=== PATIENT | female | born 1950 | race Asian ===

== ENCOUNTER → 2020-08-10 | Day surgery (SDC) | payer MEDICARE ==
[~2020-08-10] MED LIST: COREG3.125 MG PO; FUROSEMIDE40 MG PO; OR PHACO EYE KIT ONE; PREOP PHACO EYE KIT ONE; SPIRONOLACTONE25 MG PO; VIT D PO; WARFARIN SODIUM2 MG PO
[2020-08-10 10:12] LABS: INR 1.82; PROTHROMBIN TIME 21.8 seconds (11.9-14.5)
[2020-08-10 10:55] VITALS: BP 117/80
== END | disposition home or self-care (01) ==
LOC: OR 08:07
PROVIDERS: ATTEND Ophthalmology
DX: H25.11 Age-related nuclear cataract, right eye (principal); I48.91 Unspecified atrial fibrillation; I10 Essential (primary) hypertension; Z01.812 Encounter for preprocedural laboratory examination; Z20.822 Contact with and (suspected) exposure to COVID-19; Z79.01 Long term (current) use of anticoagulants
CPT/HCPCS: 36415; 66984; 85610; 85730; U0002; V2632

== ENCOUNTER → 2020-09-07 | Day surgery (SDC) | payer MEDICARE ==
[2020-09-07 12:25] LABS: BASOPHILS % 0.7 % (0.0-1.0); EOSINOPHILS # (AUTO) 0.3 (0.0-0.4); EOSINOPHILS % 4.6 % (0.0-6.0); HEMATOCRIT 41.9 % (34.2-44.1); HEMOGLOBIN 13.4 g/dL (12.0-16.0); LYMPHOCYTES # (AUTO) 1.6 (1.0-3.2); LYMPHOCYTES % 28.5 % (18.0-39.1); MEAN CORPUSCULAR HEMOGLOBIN 31.1 pg (28-32); MEAN CORPUSCULAR VOLUME 97.2 fL (81-99); MONOCYTES # (AUTO) 0.5 (0.2-0.8); MONOCYTES % 9.1 % (4.4-11.3); NEUTROPHILS # (AUTO) 3.2 (2.1-6.9); NEUTROPHILS % 56.7 % (38.7-80.0); PLATELET COUNT 179 x10e3/uL (140-360); RED BLOOD COUNT 4.31 x10e6/uL (3.6-5.1); RED CELL DISTRIBUTION WIDTH 12.8 % (11.7-14.4)
[2020-09-07 12:49] LABS: INR 2.15; PROTHROMBIN TIME 25.1 seconds (11.9-14.5)
[2020-09-07 12:51] LABS: PARTIAL THROMBOPLASTIN TIME 46.4 seconds (23.8-35.5)
[2020-09-07 13:50] VITALS: BP 112/80
== END | disposition home or self-care (01) ==
LOC: OR 11:13
PROVIDERS: ATTEND Ophthalmology
DX: H25.12 Age-related nuclear cataract, left eye (principal); I10 Essential (primary) hypertension; I48.91 Unspecified atrial fibrillation; I34.1 Nonrheumatic mitral (valve) prolapse; Z79.01 Long term (current) use of anticoagulants
CPT/HCPCS: 36415; 66984; 85025; 85610; 85730; V2632